=== PATIENT | female | born 1955 | race Caucasian/White ===

== ENCOUNTER → 2017-02-05 | Outpatient (CLI) | payer MEDICARE, OTHER ==
[~2017-02-05] MED LIST: IOHEXOL 240 MG/ML 50ML VIAL. ONE; IOHEXOL 300 MG/ML 75 ML VIAL. IV ONE
[2017-02-05 08:36] LABS: CREATININE 1.2 mg/dL (0.6-1.0)
--- NOTE | 2017-02-05 11:53 | RAD ---
CT abdomen and pelvis with contrast 02/05/2017 Clinical indication: Abdominal pain, ventral incisional hernia status post repair 7-8 years ago. Comparison: None. Technique: CT helical acquisition of the abdomen and pelvis was obtained following uneventful intravenous administration of identity contrast material. Coronal and sagittal reformations were obtained. PQRS Compliance Statement: One or more of the following individualized dose reduction techniques were utilized for this examination: 1. Automated exposure control 2. Adjustment of the mA and/or kV according to patient size 3. Use of iterative reconstruction technique Findings: Abdomen and pelvis: Heart size and lung bases are within normal limits. There is moderate diffuse hepatic steatosis. Cholelithiasis with largest stone measuring 3 cm. There is a prominent gallbladder fundal fold. No intra or extra hepatic biliary ductal dilatation. Spleen, adrenal glands are within normal limits. There is mild fatty atrophy of the pancreas. There is mild symmetric nonspecific perinephric stranding. No collecting system dilatation. Abdominal aorta is normal in caliber with moderate marrow iliac calcified atheromatous disease. No retroperitoneal or mesenteric lymphadenopathy. Small and large bowel loops are normal in caliber without obstruction. There is mild fecalization of distal small bowel loops to the level of the ileocecal junction suggestive of delayed transit. Ventral hernia repair with mesh. No abdominal free fluid. Appendix is normal in appearance. Mildly distended unopacified urinary bladder within normal limits. Uterus and adnexa present. No iliac or inguinal lymphadenopathy. There is a peripherally sclerotic lesion in the left sacral a letter with benign features. No destructive osseous lesions. There is mild ill-defined lower anterior abdominal subcutaneous stranding and cutaneous thickening with no associated loculated fluid collection. Impression: 1. Cholelithiasis, largest measuring up to 3 cm, without CT evidence of acute cholecystitis. 2. Gallbladder wall fundal thickening which may be due to adenomyomatosis. Follow-up limited right quadrant ultrasound in 3 months is recommended to assess for stability. 3. Right ventral hernia repair with no bowel obstruction or ascites. 4. Mild lower anterior abdominal cutaneous thickening and subcutaneous stranding, which may be post operative, though cellulitis cannot be excluded. Clinical correlation.
== END | disposition home or self-care (01) ==
LOC: CT 08:00
PROVIDERS: ATTEND Surgery
DX: K43.2 Incisional hernia without obstruction or gangrene (principal); K80.20 Calculus of gallbladder without cholecystitis without obstruction; I10 Essential (primary) hypertension; Z72.0 Tobacco use
CPT/HCPCS: 36415; 74177; 82565; 84520; Q9966; Q9967